=== PATIENT | male | born 1965 | race Caucasian/White ===

== ENCOUNTER 2017-09-27 12:06 | Emergency (ER) | payer OTHER ==
[2017-09-27 12:16] VITALS: BP 109/58
[2017-09-27] MEDS ORDERED: HYDROcodone/ACETAMIN 5-325 MG* 1 TAB PO ONE (13:01)
[2017-09-27] MEDS ORDERED: Ibuprofen TAB* 600 MG PO ONE (13:01)
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
== END 2017-09-27 13:33 | disposition home or self-care (01) ==
LOC: UCEAST 12:06
DX: S43.101A Unspecified dislocation of right acromioclavicular joint, initial encounter (principal); F17.210 Nicotine dependence, cigarettes, uncomplicated; Z88.1 Allergy status to other antibiotic agents; V47.5XXA Car driver injured in collision with fixed or stationary object in traffic accident, initial encounter; Y92.9 Unspecified place or not applicable
CPT/HCPCS: 99213; A9270-GY; G0463

== ENCOUNTER 2019-08-10 20:46 | Emergency (ER) | payer OTHER ==
[2019-08-10 21:10] VITALS: BP 123/80
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
== END 2019-08-10 21:44 | disposition home health service (06) ==
LOC: UCEAST 20:46
DX: R60.1 Generalized edema (principal); R06.02 Shortness of breath; R06.01 Orthopnea; M25.50 Pain in unspecified joint; M79.10 Myalgia, unspecified site; R21 Rash and other nonspecific skin eruption; E66.9 Obesity, unspecified; F17.210 Nicotine dependence, cigarettes, uncomplicated; Z88.1 Allergy status to other antibiotic agents
CPT/HCPCS: 99212; G0463

== ENCOUNTER 2019-08-10 22:19 | Emergency (ER) | payer OTHER ==
[2019-08-11 00:53] LABS: ABS Eosinophils 0.1 10^3/ul (0-0.6); ABS Lymphocytes 1.1 10^3/ul (1.0-4.8); ABS Monocytes 0.9 10^3/ul (0-0.8); ABS Neutrophils 3.1 10^3/ul (1.5-7.7); Hematocrit 30 % (42-52); Hemoglobin 10.4 g/dL (14.0-18.0); Lymphocyte % 20.6 %; Mean Corpuscular HGB Conc 35 g/dL (31-36); Mean Corpuscular Hemoglobin 32 pg (27-31); Mean Corpuscular Volume 93 fL (80-94); Mean Platelet Volume 7.5 fL (7.4-10.4); Nucleated Red Blood Cells % 0.3; Platelet Count 215 10^3/uL (150-450); Red Blood Count 3.22 10^6 /uL (4.18-5.48); Red Cell Distribution Width 14 % (10-15); White Blood Count 5.2 10^3/uL (3.5-10.8)
[2019-08-11 00:58] LABS: INR 0.97 (0.82-1.09)
[2019-08-11 01:13] LABS: Albumin 3.9 g/dL (3.2-5.2); Albumin/Globulin Ratio 1.4 (1-3); Calcium 8.7 mg/dL (8.6-10.3); EGFR African American 89.7 (>60); EGFR Non-African American 74.2 (>60); Globulin 2.8 g/dL (2-4); Potassium 3.4 mmol/L (3.5-5.0); Total Bilirubin 0.6 mg/dL (0.2-1.0); Total Protein 6.7 g/dL (6.4-8.9)
[2019-08-11 01:14] LABS: Troponin I 0.01 ng/mL (<0.04)
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
[2019-08-11] MEDS ORDERED: Furosemide IV* 10 MG/ML 10 ML VIAL (100 MG) IV ONE (01:27)
[2019-08-11 02:56] LABS: Urine Appearance Clear; Urine Bilirubin Negative (Negative); Urine Blood Negative (Negative); Urine Color Colorless; Urine Glucose Negative (Negative); Urine Ketones Negative (Negative); Urine Nitrite Negative (Negative); Urine Protein Negative (Negative); Urine Specific Gravity 1.004 (1.010-1.030); Urine Urobilinogen Negative (Negative)
[2019-08-11 03:21] LABS: Urine Benzodiazepine Screen None Detected (None Detect); Urine Opiates Screen Presumptive Positive (None Detect)
[2019-08-11 04:11] VITALS: BP 136/71
== END 2019-08-11 04:12 | disposition home or self-care (01) ==
LOC: ED 22:19
DX: R60.9 Edema, unspecified (principal); R06.02 Shortness of breath; R21 Rash and other nonspecific skin eruption; Z86.79 Personal history of other diseases of the circulatory system; Z87.442 Personal history of urinary calculi; F41.9 Anxiety disorder, unspecified; F17.210 Nicotine dependence, cigarettes, uncomplicated; F32.9 Major depressive disorder, single episode, unspecified; Z79.899 Other long term (current) drug therapy
CPT/HCPCS: 36415; 71045; 80053; 80307; 81003; 82803; 83605; 83880; 84484; 85025; 85610; 87040; 93005; 99282; J1940

== ENCOUNTER 2019-09-29 15:22 | Emergency (ER) | payer OTHER ==
[2019-09-29 15:39] VITALS: BP 110/76
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
== END 2019-09-29 16:41 | disposition home or self-care (01) ==
LOC: UCEAST 15:22
DX: L02.412 Cutaneous abscess of left axilla (principal); R20.2 Paresthesia of skin; Z87.891 Personal history of nicotine dependence; Z88.1 Allergy status to other antibiotic agents; Z88.2 Allergy status to sulfonamides
CPT/HCPCS: 99211; G0463